=== PATIENT | female | born 1930 | race Caucasian/White ===

== ENCOUNTER → 2016-06-27 | Outpatient (CLI) | payer MEDICARE, MEDICAID ==
[~2016-06-27] MED LIST: ACET-3088 PO; ALLO300T2 PO; AMIO200T2 PO; AMOX1TAB16 PO; ASPI-557 PO; FURO-153 PO; INSU100C14 SQ; INSU100I14 SQ; IPRA3AMP AEROSOL; LEVO25TA9 PO; LEVO500T63 PO; LIRA0.6P SQ; LISI-621 PO; MULT-1175 PO; OMEG300C PO; ONDA4TAB7 PO; PANT20TA13 PO; POTA-81 PO
--- NOTE | 2016-06-27 12:01 | DI ---
INDICATION: ITS.REASON: R05 COUGH PROCEDURE: CHEST 2-VIEWS UPRIGHT (PA \T\ LAT) Encounter: Initial COMPARISON: April 29, 2016 FINDINGS: There is new mild elevation of the left hemidiaphragm with left basilar airspace opacity. The right lung appears clear. No pneumothorax or pleural effusion. Heart size and mediastinal contours are stable. Pulmonary vascularity is mildly prominent but unchanged. Impression: New airspace disease in the left lower lobe which could represent atelectasis or pneumonia. .
[2016-06-27 12:11] LABS: BASOPHILS # (AUTO) 0.1 T/MM3 (0-0.2); BASOPHILS % (AUTO) 1.1 % (0-2); EOSINOPHILS # (AUTO) 0.2 T/MM3 (0-0.5); EOSINOPHILS % (AUTO) 3.3 % (0-4); HCT - HEMATOCRIT 48.5 % (36-46); HGB - HEMOGLOBIN 15.2 GM/DL (12-16); IMMATURE GRANULOCYTE # (AUTO) 0.01 T/MM3 (0.00-0.03); IMMATURE GRANULOCYTE % (AUTO) 0.2 % (0.0-0.5); LYMPHOCYTES # (AUTO) 1.6 T/MM3 (1-4.8); LYMPHOCYTES % (AUTO) 24.7 % (23-45); MEAN CORPUSCULAR HGB 32.5 UUG (26-34); MEAN CORPUSCULAR HGB CONC(MCHC 31.3 GM/DL (31-37); MEAN CORPUSCULAR VOLUME 103.9 UM3 (80-100); MONOCYTES # (AUTO) 0.7 T/MM3 (0-0.8); MONOCYTES % (AUTO) 10.6 % (0-9.0); NEUTROPHILS #(AUTO)-ABSOLUTE 3.9 T/MM3 (1.8-7.7); NEUTROPHILS % (AUTO) 60.1 % (33-66); RED BLOOD COUNT 4.67 M/MM3 (4.00-5.20); WBC - WHITE BLOOD COUNT 6.4 T/MM3 (4.5-11.0)
[2016-06-27 12:21] LABS: ANION GAP 11 MEQ/L (5-15); BUN/CREATININE RATIO 17 RATIO (6-26); CALCIUM 9.1 MG/DL (8.4-10.2); CHLORIDE 101 MEQ/L (98-107); CO2 - CARBON DIOXIDE 31 MEQ/L (22-30); CREATININE 0.9 MG/DL (0.7-1.2); GLOMERULAR FILTRATION RATE 59; GLUCOSE 168 MG/DL (65-110); POTASSIUM 3.5 MEQ/L (3.6-5); SODIUM 143 MEQ/L (134-144)
[2016-06-27 12:29] LABS: PROBNP 798 PG/ML (0-175)
== END ==
LOC: IMA 11:35
PROVIDERS: ATTEND Family Medicine
DX: R91.8 Other nonspecific abnormal finding of lung field (principal); R05 Cough
CPT/HCPCS: 36415; 80048; 83880; 85025

== ENCOUNTER → 2016-06-28 | Outpatient (CLI) | payer MEDICARE, MEDICAID ==
[2016-06-28 06:30] LABS: HCT - HEMATOCRIT 45.4 % (36-46); HGB - HEMOGLOBIN 14.3 GM/DL (12-16); MEAN CORPUSCULAR HGB 32.8 UUG (26-34); MEAN CORPUSCULAR HGB CONC(MCHC 31.5 GM/DL (31-37); MEAN CORPUSCULAR VOLUME 104.1 UM3 (80-100); MEAN PLATELET VOLUME 11.2 UM3 (9.4-12.4); RED BLOOD COUNT 4.36 M/MM3 (4.00-5.20); WBC - WHITE BLOOD COUNT 6.3 T/MM3 (4.5-11.0)
[2016-06-28 06:37] LABS: ALBUMIN 3.2 G/DL (3.5-5.0); ANION GAP 11 MEQ/L (5-15); BUN/CREATININE RATIO 16 RATIO (6-26); CALCIUM 9.2 MG/DL (8.4-10.2); CHLORIDE 103 MEQ/L (98-107); CO2 - CARBON DIOXIDE 32 MEQ/L (22-30); CREATININE 0.9 MG/DL (0.7-1.2); GLOMERULAR FILTRATION RATE 59; GLUCOSE 107 MG/DL (65-110); POTASSIUM 3.2 MEQ/L (3.6-5); SODIUM 146 MEQ/L (134-144)
[2016-06-28 06:42] LABS: HEMOGLOBIN A1C 6.7 % (6.1-7.9)
[2016-06-28 06:52] LABS: BAND NEUTROPHILS # 0.1 T/MM3; EOSINOPHILS # (MANUAL) 0.2 T/MM3 (0-0.5); LYMPHOCYTES # (MANUAL) 1.3 T/MM3 (1-4.8); MONOCYTES # (MANUAL) 0.6 T/MM3 (0-0.8); NEUTROPHILS #(MANUAL)-ABSOLUTE 4.1 T/MM3 (1.8-7.7); TOTAL CELLS COUNTED 100 %
[2016-06-28 08:11] LABS: PHOSPHORUS 3.4 MG/DL (2.5-4.5); URIC ACID 4.1 MG/DL (2.5-7.5)
== END ==
LOC: LABNH.AP 00:08
PROVIDERS: ATTEND Internal Medicine Nephrology
DX: N18.3 Chronic kidney disease, stage 3 (moderate) (principal); E87.79 Other fluid overload; E11.9 Type 2 diabetes mellitus without complications; N17.8 Other acute kidney failure; I12.9 Hypertensive chronic kidney disease with stage 1 through stage 4 chronic kidney disease, or unspecified chronic kidney disease
CPT/HCPCS: 36415; 80069; 82306; 83036; 83735; 83970; 84550; 85007; 85027; P9604

== ENCOUNTER → 2016-07-05 | Outpatient (CLI) | payer MEDICARE, MEDICAID ==
--- NOTE | 2016-07-05 14:58 | DI ---
INDICATION: ITS.REASON: J18.9 PNEUMONIA, UNSPECIFIED ORGANISM PROCEDURE: CHEST 2-VIEWS UPRIGHT (PA \T\ LAT) Encounter: Initial COMPARISON: June 27, 2016 FINDINGS: Aeration of the left lower lobe has improved. There is minimal platelike atelectasis remaining. No new infiltrates. No pneumothorax or pleural fluid. Heart size and mediastinal contours are stable. Pulmonary vascularity is unchanged. Impression: Improving left lower lobe pneumonia. .
== END ==
LOC: IMA 13:54
PROVIDERS: ATTEND Family Medicine
DX: J18.9 Pneumonia, unspecified organism (principal)